=== PATIENT | female | born 1935 | race Two or more races ===

== ENCOUNTER → 2025-04-25 | Emergency (ER) | payer OTHER ==
[~2025-04-25] VITALS: Ht 127 cm; Wt 63.5 kg
[~2025-04-25] MED LIST: KETOROLAC TROMETHAMINE 30 MG VIAL IM STA; KETOROLAC TROMETHAMINE 30 MG VIAL ONE; LIPITOR40 M1; SINGULAIR10 MG PO; SYNTHROID112 MCG PO; XANAX0.25 MG PO
== END | disposition home or self-care (01) ==
LOC: ER 09:11
DX: M25.562 Pain in left knee (principal)
CPT/HCPCS: 73560; 96372; 99283; J1885

== ENCOUNTER 2025-05-28 10:45 | Outpatient (CLI) | payer OTHER ==
[~2025-05-28 10:45] MED LIST changes: -KETOROLAC TROMETHAMINE 30 MG VIAL IM STA; -KETOROLAC TROMETHAMINE 30 MG VIAL ONE
== END 2025-05-28 10:49 | disposition home or self-care (01) ==
LOC: RAD 10:45
PROVIDERS: ATTEND Orthopaedic Surgery
DX: M17.12 Unilateral primary osteoarthritis, left knee (principal)